=== PATIENT | female | born 1995 | race Two or more races ===

== ENCOUNTER 2022-04-03 07:39 | Emergency (ER) | payer OTHER ==
[~2022-04-03] VITALS: Ht 147.3 cm; Wt 46.3 kg
[2022-04-03 08:30] VITALS: BP 125/78
[2022-04-03] MEDS ORDERED: AMOX-277 PO (08:34)
[2022-04-03] MEDS ORDERED: PRED20TA2 PO (08:34)
== END 2022-04-03 08:40 | disposition home or self-care (01) ==
LOC: ER 07:39
DX: H65.03 Acute serous otitis media, bilateral (principal); Z79.2 Long term (current) use of antibiotics; Z79.899 Other long term (current) drug therapy

== ENCOUNTER 2022-07-29 09:17 | Emergency (ER) | payer OTHER ==
[~2022-07-29] VITALS: Ht 147.3 cm; Wt 45.0 kg
[~2022-07-29 09:17] MED LIST: AMOX-277 PO; PRED20TA2 PO
[2022-07-29 09:57] VITALS: BP 119/82
[2022-07-29] MEDS ORDERED: ONDANSETRON ODT 4 MG TAB PO ONE (10:00)
[2022-07-29] MEDS ORDERED: ONDA-144 PO (11:11)
== END 2022-07-29 11:12 | disposition home or self-care (01) ==
LOC: ER 09:17
DX: O21.0 Mild hyperemesis gravidarum (principal); Z3A.01 Less than 8 weeks gestation of pregnancy
CPT/HCPCS: 81025; 99283; Q0162

== ENCOUNTER 2024-10-14 13:10 | Emergency (ER) | payer MEDICAID ==
[~2024-10-14] VITALS: Ht 147.3 cm; Wt 53.6 kg
[~2024-10-14 13:10] MED LIST changes: -AMOX-277 PO; +AMOX875T4 PO; +ONDA-144 PO
--- NOTE | 2024-10-14 13:37 | ED.PDOC ---
History of Present Illness HPI Comments 28-year-old female with no reported PMHx presents with a chief complaint of nausea, vomiting, diarrhea, abdominal pain, and chills. Patient states that her pain is localized diffusely, nonradiating, describes as aching, and rates her pain a 8/10. Patient mentions that she and her have similar symptoms. Patient reports that they believe they may have food poisoning. Patient reports that she was seen yesterday at urgent care and was prescribed Flagyl, but has only taken one dose thus far. Time Seen by MD: 13:26 Primary Care Provider: DAYRON Reviewed Notes: Nurses Notes, Medications, Allergies Allergies: Coded Allergies: NO KNOWN ALLERGIES (Unverified , 04/03/22) Home Meds Active Scripts Ondansetron (Zofran) 4 Mg Tab, 4 MG PO BID, #20 TAB Prov:URSULA BLAIR 09/20/22 Ondansetron (Zofran) 4 Mg Tab, 1 TAB PO Q6HR, #30 TAB 1 Refill Prov:MACKENZIE URRUTIA PAC 07/29/22 Prednisone (Prednisone) 20 Mg Tab, 40 MG PO DAILY for 7 Days, #14 MG Prov:URSULA BLAIR 04/03/22 Amoxicillin & Pot Clavulanate (Amoxicillin/Potassium Cla) 875 Mg Tab, 1 TAB PO BID, #20 TAB Prov:URSULA BLAIR 04/03/22 Information Source: Patient Mode of Arrival: Ambulatory Severity: Moderate Timing: Days Duration: Since onset Prehospital treatment: None Past Medical History PAST MEDICAL HISTORY: Denies Surgical History: TABLE FILLER History: No Pertinent TABLE FILLER History Family History Family History: Reviewed,noncontributory to illness Social History Smoker: Non-Smoker Alcohol: Occasionally Drugs: Denies Drug Use Lives In: Home Constitutional: reports: chills; denies: diaphoresis, fatigue, fever, malaise, sweats, weakness, others EENTM: denies: blurred vision, double vision, ear bleeding, ear discharge, ear drainage, ear pain, ear ringing, eye pain, eye redness, hearing loss, mouth pain, mouth swelling, nasal discharge, nose bleeding, nose congestion, nose pain, photophobia, tearing, throat pain, throat swelling, voice changes, others Respiratory: denies: cough, hemoptysis, orthopnea, SOB at rest, shortness of breath, SOB with excertion, stridor, wheezing, others Cardiovascular: denies: chest pain, dizzy spells, diaphoresis, Dyspnea on exertion, edema, irregular heart beat, left arm pain, lightheadedness, palpitations, PND, syncope, others Gastrointestinal: reports: abdominal pain, diarrhea, nausea, vomiting; denies: abdomen distended, blood streaked bowels, constipated, dysphagia, difficulty swallowing, hematemesis, melena, poor appetite, poor fluid intake, rectal bleeding, rectal pain, others Genitourinary: denies: abnormal vagina bleeding, burning, dyspareunia, dysuria, flank pain, frequency, hematuria, incontinence, pain, , vagina discharge, urgency, others Neurological: denies: dizziness, fainting, headache, left sided numbness, left sided weakness, numbness, paresthesia, pre-existing deficit, right sided numbness, right sided weakness, seizure, speech problems, tingling, tremors, weakness, others Musculoskeletal: denies: back pain, gout, joint pain, joint swelling, muscle pain, muscle stiffness, neck pain, others Integumetry: denies: bruises, change in color, change in hair/nails, dryness, laceration, lesions, lumps, rash, wounds, others Allergic/Immunocompromised: denies: Difficulty Healing, Frequent Infections, Hives, Itching, others Hematologic/Lymphatic: denies: anemia, blood clots, easy bleeding, easy bruising, swollen glands, others Endocrine: denies: excessive hunger, excessive sweating, excessive thirst, excessive urination, flushing, intolerance to cold, intolerance to heat, unexplained weight gain, unexplained weight loss, others Psychiatric: denies: anxiety, bipolar disorder, depression, hopeless, panic disorder, schizophrenia, sleepless, suicidal, others All Other Systems: Reviewed and Negative Physical Exam General Appearance: No Apparent Distress HEENT: Normal ENT Inspection, Pharynx Normal, TMs Normal Neck: Full Range of Motion, Non-Tender, Normal, Normal Inspection Respiratory: Chest Non-Tender, Lungs Clear, No Accessory Muscle Use, No Respi ratory Distress, Normal Breath Sounds Cardiovascular: No Edema, No JVD, No Murmur, No Gallop, Normal Peripheral Pulses, Regular Rate/Rhythm Breast Exam: Deferred Gastrointestinal: No Organomegaly, Non Tender, No Pulsatile Mass, Normal Bowel Sounds, Soft Genitalia: Deferred Pelvic: Deferred Rectal: Deferred Extremities: No calf tenderness, Normal capillary refill, Normal inspection, Normal range of motion, Non-tender, No pedal edema Musculoskeletal : Apperance: Normal Neurologic: Alert, carpenter foreman II-XII nml as Tested, No Motor Deficits, Normal Affect, Normal Mood, No Sensory Deficits Cerebellar Function: Normal Reflexes: Normal Skin: Dry, Normal Color, Warm Lymphatic: No Adenopathy Was a procedure done? Was a procedure done?: No Differential Dx Considerations may include: Viral syndrome, generalized weakness, electrolyte imbalance X-Ray, Labs, Meds, VS Vital Signs Date Time Temp Pulse Resp B/P (MAP) Pulse Ox O2 Delivery O2 Flow Rate FiO2 10/14/24 14:55 95 18 98 Room Air* 0 21 10/14/24 14:54 97.2 95 18 123/77 (92) 98 97.2 10/14/24 13:38 99.2 100 17 126/90 (102) 97 99.2 Lab Test 10/14/24 13:30 Range/Units Urine Color Yellow Yellow Urine Clarity Clear Clear Urine pH 5.5 5.0-9.0 Urine Specific [place] 1.023 1.001-1.035 Urine Protein 1+ H Negative Urine Ketones 3+ H Negative Urine Blood 1+ H Negative /uL Urine Nitrite Negative Negative Urine Bilirubin Negative Negative Urine Urobilinogen Normal Negative mg/dL Urine Leukocyte Esterase Trace Negative /uL Urine RBC 10 0 - 4 /hpf Urine Microscopic WBC 1 0-5 /HPF Urine Squamous Epithelial Cells Few <5 /hpf Urine Bacteria None seen None Seen /hpf Urine Mucus Few None Seen Urine Glucose Normal Normal mg/dL The urine test is negative The patient was being discharged The patient will follow up with the primary care doctor The patient was given a prescription of Zofran Time of 1ST Reevaluation: 13:59 Reevaluation 1ST: Unchanged Patient Education/Counseling: Diagnosis, Treatment, Prognosis, Need For Follow Up Family Education/Counseling: No Family Present Departure 1 Departure Time of Disposition: 16:18 Impression: Primary Impression: Viral syndrome Disposition: 01 HOME / SELF CARE / HOMELESS Condition: Fair Discharged With: Self Critical Care Note Critical Care Time?: No Stability Stability form required: No Heart Score Heart Score: Heart Score Response (Comments) Value History N/A 0 EKG N/A 0 Age N/A 0 Risk Factors N/A 0 Troponin N/A 0 Total 0 I personally scribed for REAL SHAH MD ([email or web address]) on 10/14/24 at 13:37. Electronically submitted by Kennedy Ruiz ([email or web address]). REAL SHAH MD Oct 14, 2024 13:37
[2024-10-14 13:59] LABS: Urine Bacteria None Seen /hpf (None Seen)
[2024-10-14 14:10] LABS: Urine Blood 1+ /uL (Negative); Urine Clarity Clear (Clear); Urine Color Yellow (Yellow); Urine Mucus FEW (None Seen); Urine Protein, UAD 1+ (Negative); Urine Specific Gravity 1.023 (1.001-1.035); Urine Squamous Epithelial Cell FEW /hpf (<5); Urine Urobilinogen Normal (Negative); Urine WBC 1 /HPF (0-5); Urine pH 5.5 (5.0-9.0)
[2024-10-14 14:54] VITALS: BP 123/77; TEMP 97.2
[2024-10-14 14:55] VITALS: PULSE 95; RESP 18; O2SAT 98
[2024-10-14] MEDS ORDERED: ZOFR4T PO (16:20)
== END 2024-10-14 17:23 | disposition home or self-care (01) ==
LOC: ER 13:10
DX: B34.9 Viral infection, unspecified (principal); Z98.890 Other specified postprocedural states
CPT/HCPCS: 81001